=== PATIENT | female | born 1995 | race African-American/Black ===

== ENCOUNTER 2019-08-09 00:17 | Emergency (ER) | payer SELFPAY ==
[~2019-08-09] VITALS: Ht 157.5 cm; Wt 55.0 kg
[2019-08-09 01:03] VITALS: BP 118/73
[2019-08-09 01:04] LABS: CLARITY URINE CLEAR (CLEAR); COLOR URINE YELLOW (YELLOW); KETONES URINE NEGATIVE (NEGATIVE); LEUKOCYTE ESTERASE URINE NEGATIVE (NEGATIVE); NITRITE URINE NEGATIVE (NEGATIVE); OCCULT BLOOD URINE NEGATIVE (NEGATIVE); PROTEIN URINE NEGATIVE (NEGATIVE); SPECIFIC GRAVITY URINE 1.016 (1.005-1.030)
== END 2019-08-09 03:36 | disposition home or self-care (01) ==
LOC: ER 00:17
DX: N76.0 Acute vaginitis (principal); B96.89 Other specified bacterial agents as the cause of diseases classified elsewhere; B37.9 Candidiasis, unspecified; L29.8 Other pruritus
CPT/HCPCS: 81003; 87210; 99283